=== PATIENT | female | born 2000 | race Caucasian/White ===

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

== ENCOUNTER 2021-05-24 06:02 | Outpatient (CLI) | payer OTHER ==
[~2021-05-24] VITALS: Ht 165.1 cm; Wt 86.4 kg
--- NOTE | 2021-05-24 06:15 | NUR ---
0615- 39.2, G1L0 here with c/o ctx every 5 min that started at 0100. Ambulatory to LDR5 with SO. Oriented to room and POC. Changes into gown. Patient reports normal movement. Denies any LOF, or VB. EFM explained and placed x2. Assessment completed, VS obtained.
[2021-05-24] MEDS ORDERED: UNISOM SLEEPGEL50 MG PO (06:34)
[2021-05-24] MEDS ORDERED: VITAMIN B-625 MG (06:35)
[2021-05-24] MEDS ORDERED: PRENATAL TABLET PO (06:35)
[2021-05-24 06:45] VITALS: BP 118/77; PULSE 71; TEMP 98.9
--- NOTE | 2021-05-24 06:50 | NUR ---
0650- EFM off and patient ambulatory in halls. POC reviewed. 0722- EFM tracing 65, FHR audible 130's. EFM adjusted. 0735- Discharge instructions reviewed with patient and SO who verbalize understanding. Ambulatory off unit.
[2021-05-24 07:35] VITALS: BP 110/58; PULSE 73; TEMP 98.6
[2021-05-24] MEDS ORDERED: TYLENOL 500MG500 MG PO (19:26)
== END 2021-05-24 07:40 | disposition home or self-care (01) ==
LOC: LDRO 06:02
DX: O62.9 Abnormality of forces of labor, unspecified (principal); Z3A.39 39 weeks gestation of pregnancy

== ENCOUNTER 2021-05-24 18:05 | Inpatient (IN) | payer OTHER, MEDICAID ==
[~2021-05-24] VITALS: Ht 165.1 cm; Wt 86.4 kg
[2021-05-24] VITALS (16 sets, daily range): BP systolic 104–131; BP diastolic 59–87; PULSE 68–97; TEMP 98.1
[~2021-05-24 18:05] MED LIST changes: +PRENATAL TABLET PO; +UNISOM SLEEPGEL50 MG PO; +VITAMIN B-625 MG
--- NOTE | 2021-05-24 18:15 | NUR ---
PT TO UNIT AMBULATORY WITH COMPLAINTS OF CONTRACTIONS SINCE 99 TODAY. PT ORIENTED TO ROOM, CHANGED INTO GOWN, EFMX2, VS OBTAINED, SVE PERFORMED.
[2021-05-24] MEDS ORDERED: TYLENOL 500MG500 MG PO (19:26)
[2021-05-24 19:58] LABS: BASO % 0.4 % (0.0-2.0); EOS # 0.1 (0.0-0.7); EOS % 0.5 % (0-4.0); GRAN # 7.1 (1.4-6.5); GRAN % 66.8 % (42.2-75.2); HEMATOCRIT 38.7 % (35.0-45.0); HEMOGLOBIN 12.8 g/dl (12.0-15.0); LYMPH # 2.6 (1.2-3.4); LYMPH % 24.3 % (20.0-51.0); MEAN CELL VOLUME 87 fl (80.0-95.0); MEAN CORPUSCULAR HEMOGLOBIN 29 pg (26.0-32.0); MEAN CORPUSCULAR HGB CONC 33 g/dl (33.0-37.0); MEAN PLATELET VOLUME 11.2 fl (7.4-10.4); MONO # 0.8 (0.1-0.6); MONO % 7.6 % (1.7-9.3); PLATELET COUNT 314 K/mm3 (130-400); RED BLOOD COUNT 4.44 M/mm3 (4.10-5.30); REDCELL DISTRIBUTION WIDTH-CV 13.2 % (11.5-14.5)
--- NOTE | 2021-05-24 20:28 | NUR ---
2010- Dianne REID CRNA IN ROOM FOR EPIDURAL PLACEMENT. PT SITTING UP AT BEDSIDE FOR EPIDURAL PLACEMENT. BP CUFF SET TO EVERY 5 MINUTUES, PULSE OX IN PLACE. HAVING DIFFICULTY TRACING FHT'S DUE TO MATERNAL POSITION AND BICORNATE UTERUS. THIS NURSE ATTEMPT TO TRACE BY HOLDING US IN PLACE. 2020- TEST DOSE GIVEN BY Dianne REID CRNA. PT TOLERATED WELL. 2027- PT REPOSITIONED INTO HIGH FOWLERS FOLLOWING EPIDURAL PLACEMENT.
--- NOTE | 2021-05-24 20:30 | NUR ---
CONTINUED DIFFICULTY TRACING FHT'S AND CONTRACTIONS DUE TO MATERNAL POSITION DURING EPIDURAL PLACEMENT.
[2021-05-25] VITALS (55 sets, daily range): BP systolic 102–161; BP diastolic 56–97; PULSE 58–122; TEMP 97.9–98.6
--- NOTE | 2021-05-25 06:30 | NUR ---
Order received from Dr. Kelly to start pitocin with no cervical change since 399.
--- NOTE | 2021-05-25 08:35 | NUR ---
SVE by this RN -/-2 with clear fluid noted on exam. SROM wtih unknown time. Roles on the unit. FHR tracing reviewed and update given.
--- NOTE | 2021-05-25 10:30 | NUR ---
1030- OK to push order received from Dr. Mcleod. Arrington removed without complications. Pushing instructions reviewed. 1035- Pushing started. 1100- Unable to determine FHR baseline due to intermittent tracing while pushing. Frequent attempts to adjust EFM. 1118- Dr. Mcleod at the bedside for evaluation of pushing. 1122- Pt set up for delivery. Nursery RN called to the bedside. 1130- of viable male . Clemmons placed on mom's abdomen. Cords clamped and cut. Care of the given to nursery RN at the bedside. 1134- of placenta. Pitocin started at 333ml/hr per order and protocol. Fundus firm and lochia WNL per Dr. Mcleod.
--- NOTE | 2021-05-25 14:30 | NUR ---
Pt sleeping will attempt to ambulate to the bathroom later.
--- NOTE | 2021-05-25 15:30 | NUR ---
Attempted to assist pt to the bathroom. Pt's left leg too numb to use. Pt standby assist to the wheelchair and to the bathroom. Pt unable to void at this time. Assisted pt back to the wheelchair and transferred to room 214. Oriented to room, bed and call light within reach.
[2021-05-26 01:26] VITALS: BP 107/61; PULSE 100; TEMP 97.6
[2021-05-26 04:39] VITALS: BP 106/45; PULSE 67; TEMP 97.7
[2021-05-26 07:30] VITALS: BP 113/62; PULSE 72; TEMP 98.7
--- NOTE | 2021-05-26 09:56 | NUR ---
Initial visit attempt; Patient indisposed, Learning And Development Analyst left card of congratulations and God's blessings along with information regarding the availability of spiritual care at [facility].
[2021-05-26 12:00] VITALS: BP 116/64; PULSE 90; TEMP 97.7
[2021-05-26 16:45] VITALS: BP 101/54; PULSE 74; TEMP 97.8
[2021-05-26 21:00] VITALS: BP 119/74; PULSE 94; TEMP 98.3
[2021-05-27] MEDS ORDERED: IBU600 MG PO (08:13)
[2021-05-27] MEDS ORDERED: PERCOCET 325 MG1 TA2 PO (08:13)
[2021-05-27 09:30] VITALS: BP 119/71; PULSE 73; TEMP 98
--- NOTE | 2021-05-27 12:30 | NUR ---
Discharge instructions and follow up care reviewed with pt and at the bedside. Both verbalized an understanding, agreed with the plan and states no questions or concerns at this time.
== END 2021-05-27 12:35 | disposition home or self-care (01) | DRG 807 ==
LOC: LDRO 18:05 → LDR 19:15 → LDRO 19:33 → OB 19:34 → LDR 19:34 → OB 05-25 16:00
PROVIDERS: Obstetrics & Gynecology; ADMIT Student in an Organized Health Care Education/Training Program
PROC: 10E0XZZ Delivery of Products of Conception, External Approach (ICD-10-PCS; principal; 2021-05-25)
PROC: 0KQM0ZZ Repair Perineum Muscle, Open Approach (ICD-10-PCS; 2021-05-25)
DX: O34.03 Maternal care for unspecified congenital malformation of uterus, third trimester (principal); Z37.0 Single live birth; O70.1 Second degree perineal laceration during delivery; O99.52 Diseases of the respiratory system complicating childbirth; J45.909 Unspecified asthma, uncomplicated; O99.824 Streptococcus B carrier state complicating childbirth; O43.193 Other malformation of placenta, third trimester; O36.63X0 Maternal care for excessive fetal growth, third trimester, not applicable or unspecified; Z3A.39 39 weeks gestation of pregnancy
CPT/HCPCS: J2540; J2590; J7120